=== PATIENT | female | born 1995 | race African-American/Black ===

== ENCOUNTER 2021-03-27 09:51 | Emergency (ER) | payer OTHER ==
[~2021-03-27] VITALS: Ht 162.6 cm; Wt 79.8 kg
[2021-03-27] MEDS ORDERED: PROMETHAZINE12.5 M1 PO (10:10)
[2021-03-27] MEDS ORDERED: PROMETHAZINE12.5 MG PR (11:45)
[2021-03-27] MEDS ORDERED: ZOFRAN4 MG PO (11:45)
[2021-04-30] MEDS ORDERED: ZOFRAN4 MG (09:01)
== END 2021-03-27 12:46 | disposition home or self-care (01) ==
LOC: ED 09:51
DX: O21.0 Mild hyperemesis gravidarum (principal); Z3A.01 Less than 8 weeks gestation of pregnancy; Z88.0 Allergy status to penicillin; Z88.8 Allergy status to other drugs, medicaments and biological substances; Z88.1 Allergy status to other antibiotic agents
CPT/HCPCS: 80053; 81001; 84702; 85025; 96374; 99284-25; J2765; J7030; J7040

== ENCOUNTER 2021-04-22 09:04 | Emergency (ER) | payer OTHER ==
[~2021-04-22] VITALS: Ht 162.6 cm; Wt 79.4 kg
[~2021-04-22 09:04] MED LIST: PROMETHAZINE12.5 M1 PO; PROMETHAZINE12.5 MG PR; ZOFRAN4 MG PO
--- OUTSIDE RECORDS SUMMARY | 2021-04-22 10:58 | XMS ---
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 Javan has no Care Guidelines for this patient. [place] VISIT COUNT (12 MO.) 2 [facility] [place] [facility]. TOTAL 2 NOTE: Visits indicate total known visits. ED/C VISIT TRACKING (12 MO.) 04/22/2021 09:[address] [facility] [place] TYPE: Emergency COMPLAINT: - N/V 03/27/2021 09:52 [facility] [place] TYPE: Emergency COMPLAINT: - VOMITING BLOOD DIAGNOSES: - Allergy status to penicillin - Mild hyperemesis gravidarum - Allergy status to other drugs, medicaments and biological substances - Allergy status to other antibiotic agents - Less than 8 weeks gestation of INPATIENT VISIT TRACKING (12 MO.) No inpatient visits to display in this time frame [email or web address]
[2021-04-30] MEDS ORDERED: ZOFRAN4 MG (09:01)
== END 2021-04-22 15:37 | disposition home or self-care (01) ==
LOC: ED 09:04
DX: O21.0 Mild hyperemesis gravidarum (principal); Z3A.11 11 weeks gestation of pregnancy; Z88.0 Allergy status to penicillin; Z88.8 Allergy status to other drugs, medicaments and biological substances; Z88.1 Allergy status to other antibiotic agents
CPT/HCPCS: 80053; 81001; 85025; 96374; 96375; 99284-25; J1200; J2765; J7030; J7042

== ENCOUNTER 2024-09-22 07:05 | Day surgery (SDC) | payer OTHER ==
[~2024-09-22] VITALS: Ht 162.6 cm; Wt 74.5 kg
[~2024-09-22 07:05] MED LIST changes: +IBLOOD GLUCOSE TEST STRIP 1 EA TEST VI PRN; +IBUPROFEN800 MG PO; +LACTATED RINGER'S 1,000 ML IV SCH; +LIDOCAINE HCL 1% 5 ML SDV INJ ONE; +OXYCODONE HCL5 MG PO; +SUMATRIPTAN SUC50 MG PO; +ZOFRAN4 MG
[2024-09-22] MEDS ORDERED: MIRENA1 EAC3 XX (07:09)
[2024-09-22] MEDS ORDERED: SULFAMETHOXAZO1 EAC1 PO (07:09)
[2024-09-22] MEDS ORDERED: AZO STANDARD95 MG PO (07:10)
[2024-09-22 07:22] VITALS: BP 126/88
[2024-09-22] MEDS ORDERED: BACTRIM DS TAB1 EACH PO (07:27)
[2024-09-22] MEDS ORDERED: METOCLOPRAMIDE HCL 10 MG/2 ML SDV ONE (08:08)
[2024-09-22] MEDS ORDERED: KETOROLAC TROMETHAMINE 30 MG/ML VIAL ONE (08:08)
[2024-09-22] MEDS ORDERED: fentaNYL citrate 100 MCG/2 ML VIAL ONE (08:08)
[2024-09-22] MEDS ORDERED: LACTATED RINGER'S 1,000 ML IV ONE (08:08)
[2024-09-22] MEDS ORDERED: propofoL 200 MG/20 ML VIAL ONE ×2 (08:08→10:02)
[2024-09-22] MEDS ORDERED: DEXAMETHASONE SOD PHOS 4 MG/ML VIAL ONE (08:08)
[2024-09-22] MEDS ORDERED: ondansetron HCL 4 MG/2 ML VIAL ONE (08:08)
[2024-09-22] MEDS ORDERED: FAMOTIDINE 20 MG/ 2 ML VIAL ONE (08:09)
[2024-09-22] MEDS ORDERED: MIDAZOLAM HCL 2 MG/2 ML VIAL ONE (08:09)
[2024-09-22] MEDS ORDERED: droPERidol 5 MG/2 ML VIAL IV PRN (08:30)
[2024-09-22] MEDS ORDERED: ondansetron HCL 4 MG/2 ML VIAL IV PRN ×2 (08:30→11:15)
[2024-09-22] MEDS ORDERED: METOCLOPRAMIDE HCL 10 MG/2 ML SDV IV PRN (08:30)
[2024-09-22] MEDS ORDERED: MORPHINE SULFATE 10 MG/ML VIAL IV PRN (08:30)
[2024-09-22] MEDS ORDERED: IBLOOD GLUCOSE TEST STRIP 1 EA TEST VI PRN (08:30)
[2024-09-22] MEDS ORDERED: fentaNYL citrate 50 MCG/ML SDV IV PRN (08:30)
[2024-09-22] MEDS ORDERED: NALOXONE HCL 0.4 MG SYR IV PRN ×2 (08:30→11:15)
[2024-09-22] MEDS ORDERED: PROCHLORPERAZINE EDISYLATE 10 MG/2 ML VIAL IV PRN (08:30)
[2024-09-22] MEDS ORDERED: CEFAZOLIN SODIUM 2 GM/20 ML SYR IV ONE (09:15)
[2024-09-22] MEDS ORDERED: SCOPOLAMINE 1 MG/3 DAYS PATCH 1 EACH TDSY ONE (10:04)
[2024-09-22] MEDS ORDERED: droPERidol 5 MG/2 ML VIAL ONE (10:04)
[2024-09-22] MEDS ORDERED: diphenhydrAMINE HCL 50 MG/ML VIAL ONE (10:12)
--- NOTE | 2024-09-22 11:11 | NUR ---
09/22/24 1111 [address] Terrazas 1058: PT ARRIVED TO PACU WITH ORAL AIRWAY IN PLACE AND ON 10L VIA MASK. PT NON AROUSABLE AT THIS TIME. 1102: ORAL AIRWAY OUT AT THIS TIME AND TITRATED TO RA.
[2024-09-22] MEDS ORDERED: IBUPROFEN 800 MG TAB PO PRN (11:15)
[2024-09-22] MEDS ORDERED: IBUPROFEN800 MG PO ×2 (11:15→11:22)
[2024-09-22] MEDS ORDERED: diphenhydrAMINE HCL 50 MG/ML VIAL IV PRN (11:15)
[2024-09-22] MEDS ORDERED: OXYCODONE HCL5 MG PO ×2 (11:15→11:22)
[2024-09-22] MEDS ORDERED: HYDROCODONE/ACETA 5/325 TAB PO PRN (11:15)
[2024-09-22 11:39] VITALS: BP 116/73
--- NOTE | 2024-09-22 11:42 | NUR ---
Patient returns to room 13 from pacu. report taken from WHITNEY Rodriguez. patient is still very drowsy upon arrival. vital signs obtained and wdl. Patient wakes easily to verbal stimuli and is able to answer questions. Patient has a peripad in place with mesh underwear. small amount of red drainage noted to pad. IV in place. Patient has a scopalamine patch in place behind right ear. patient denies any nausea or pain. Gardenia warmer placed under blanket for warmth. patient denies any other needs at this time.
[2024-09-22] MEDS ORDERED: SEVOFLURANE 250 ML BTL INH ONE (11:50)
--- NOTE | 2024-09-22 11:50 | NUR ---
GRAM STAIN RESULTS RECEIVED FROM LAB. WBC- MANY; GRAM NEG RODS- MODERATE. DR ZULETA NOTIFIED VIA PHONE CALL. NO CHANGES TO ABX PER DR ZULETA
--- NOTE | 2024-09-22 12:16 | NUR ---
ROUNDING ON PATIENT. PATIENT IS STILL QUITE DROWSY BUT AROUSES EASILY TO VERBAL STIMULI. WATER AND FOOD AT BEDSIDE. I EXPLAINED TO PATIENT AND THE EXPECTATIONS OF BEING ABLE TO LEAVE FROM DAY SURGERY. EXPRESSED UNDERSTANDING. I WILL REITERATE EXPCTATIONS TO PATIENT WHEN SHE IS A LITTLE MORE AWAKE. PATIENT REPORTS THAT HER PAIN IS UNDER CONTROL AND SHE DOES NOT HAVE ANY NAUSEA.
[2024-09-22 12:35] VITALS: BP 102/64
--- NOTE | 2024-09-22 12:50 | NUR ---
Patient is waking up. She still feels drowsy but she is able to hold a conversation with me and her . She expressed the need to urinate. Patient walked to the bathroom without assistance with a steady gait and voided 600ml. Patient walked back to room 13. Patient is allowed to get dressed, but I let her know that I still need her to eat something before she can leave so we can ensure her nausea is still under control and she expressed understanding.
--- NOTE | 2024-09-22 13:05 | NUR ---
Patient has met all milestones at this time. she has voided, eaten/drank, her pain is under control, and she denies any nausea. Discharge instructions reveiwed with both the patient and her and they expressed understanding. Prescription sent with patient and her in her packet. Patient was discharged via wheelchair where her is to take her home.
--- NOTE | 2024-09-24 09:49 | OR ---
[facility] [address] [place], [place] [address] Signed DATE OF OPERATION: 09/22/2024 SURGEON: Ector Dubois MD PREOPERATIVE DIAGNOSIS: Left recurrent Bartholin's cyst. POSTOPERATIVE DIAGNOSIS: Left recurrent Bartholin's cyst. PROCEDURES PERFORMED: Marsupialization of left Bartholin's cyst. AIR QUALITY SPECIALIST SURGEON: Chely Hackett DO ANESTHESIA: General. COMPLICATIONS: None. ESTIMATED BLOOD LOSS: 10 mL. IV FLUIDS: 1500 mL of Lactated Ringer. URINARY OUTPUT: 100 mL of clear urine. INDICATIONS FOR PROCEDURE: The patient was brought to the operating room for treatment of her recurrent left Bartholin's cyst. She was previously treated with a word catheter. However, the cyst returned. She was given the options of management and chose to manage the recurrent cyst with surgery. After careful discussion of all the alternatives, risk and benefits, marsupialization was planned. The patient was admitted for the procedure. ANATOMICAL FINDINGS: At the time of the surgery, the left Bartholin's duct cyst was present measuring Electronically Signed By: BREANNA ZULETA MD 09/24/24 0949 PATIENT NAME: OSMIN LI OPERATIVE REPORT DATE OF : [birth year] REPORT #: [id number] PHYSICIAN: BREANNA ZULETA MD PCP: KADE WINTERS PAC REPORT IS CONFIDENTIAL AND NOT TO BE RELEASED WITHOUT AUTHORIZATION [facility] [address] [place] [address] Signed approximately 4 x 3 cm in size. There was no drainage noted. On incising the gland the cyst contents were filled with purulent material. DESCRIPTION OF PROCEDURE: The patient was taken to the operating room and given adequate general anesthesia. She was examined confirming the presence of the Bartholin's cyst. The bimanual exam was unremarkable. She was then prepped and draped in the usual sterile manner. The large cyst was then incised outside of the hymenal ring on the vaginal mucosa. Culture was obtained. The incision was then enlarged to approximately 4 cm and the purulent drainage was noted. The cyst was then liberally irrigated with the use of an Asepto syringe and normal saline. There were no loculations noted. At this time, the incision was then sutured in the classical fashion, suturing the mucosal lining of the cyst to the skin with interrupted 3-0 Vicryl sutures at strategic intervals. Good hemostasis was achieved. No further procedures were performed. All instruments were removed. The patient was stable at all times. The patient was returned to the same day surgical unit and stable in satisfactory condition. All needle, sponge and instrument counts were correct x2. Ector Dubois/KODIL /[id number] Copies: ~ Electronically Signed By: BREANNA ZULETA MD 09/24/24 0949 PATIENT NAME: OSMIN LI OPERATIVE REPORT DATE OF : [birth year] REPORT #: [id number] PHYSICIAN: BREANNA ZULETA MD PCP: KADE WINTERS PAC REPORT IS CONFIDENTIAL AND NOT TO BE RELEASED WITHOUT AUTHORIZATION
== END 2024-09-22 13:10 | disposition home or self-care (01) ==
LOC: DS 07:05
PROVIDERS: ATTEND Obstetrics & Gynecology
PROC: 0UBL0ZZ Excision of Vestibular Gland, Open Approach (ICD-10-PCS; principal; 2024-09-22 09:30)
DX: N75.0 Cyst of Bartholin's gland (principal); J45.909 Unspecified asthma, uncomplicated; F32.A Depression, unspecified; Z79.899 Other long term (current) drug therapy; Z88.0 Allergy status to penicillin; Z88.8 Allergy status to other drugs, medicaments and biological substances
CPT/HCPCS: 84703; 87205; J0690; J1100; J1200; J1790; J1885; J2250; J2405; J2704; J2765; J3010; J7121

== ENCOUNTER 2025-08-23 13:26 | Emergency (ER) | payer OTHER ==
[~2025-08-23] VITALS: Ht 162.6 cm; Wt 81.8 kg
[~2025-08-23 13:26] MED LIST changes: +AZO STANDARD95 MG PO; +BACTRIM DS TAB1 EACH PO; +EPIPEN 2-P0.3 MG/0.3 IM; -IBLOOD GLUCOSE TEST STRIP 1 EA TEST VI PRN; -LACTATED RINGER'S 1,000 ML IV SCH; -LIDOCAINE HCL 1% 5 ML SDV INJ ONE; +MIRENA1 EAC3 XX; +PREDNISONE20 MG PO; +SULFAMETHOXAZO1 EAC1 PO
[2025-08-23] MEDS ORDERED: FAMOTIDINE 20 MG TAB PO ONE (13:45)
[2025-08-23] MEDS ORDERED: EPIPEN 2-P0.3 MG/0.3 IM (13:52)
[2025-08-23 15:26] VITALS: BP 118/78
== END 2025-08-23 15:28 | disposition home or self-care (01) ==
LOC: ED 13:26
DX: T78.40XA Allergy, unspecified, initial encounter (principal); Z88.0 Allergy status to penicillin; Z88.2 Allergy status to sulfonamides; Z88.8 Allergy status to other drugs, medicaments and biological substances; Z88.1 Allergy status to other antibiotic agents; Z91.030 Bee allergy status
CPT/HCPCS: 99284; Q0163